=== PATIENT | male | born 1945 | race Caucasian/White ===

== ENCOUNTER 2022-05-26 11:37 | Outpatient (CLI) | payer MEDICARE, BC | END 2022-05-26 11:38 | disposition home or self-care (01) | LOC: CSHMRI 11:37 | PROVIDERS: ATTEND Radiology Radiation Oncology | DX: C61 Malignant neoplasm of prostate (principal); Z92.21 Personal history of antineoplastic chemotherapy | CPT/HCPCS: 72197; 82565 ==